=== PATIENT | female | born 1970 | race African-American/Black ===

== ENCOUNTER 2016-11-14 09:35 | Emergency (ER) | payer BC ==
[~2016-11-14] VITALS: Ht 172.7 cm; Wt 126.1 kg
[~2016-11-14 09:35] MED LIST: BENTYL20 MG PO; HYDROCODON-ACE1 EAC7 PO; IMODIUM MS REL1 EACH PO; LISINOPRIL-HCT1 EACH PO; NAPROSYN500 MG PO; ONE DAILY1 EAC3 PO; PREDNISONE20 MG PO; PRINZIDE 10-121 EACH PO; ZOFRAN4 MG PO
[2016-11-14 10:23] LABS: HEMATOCRIT 35.4 % (36.0-46.0); MCH 29.2 PG (29.0-34.0); MCHC 32.2 G/DL (30.0-36.0); MCV 90.8 FL (83-99); MEAN PLAT.VOLUME 9.2 uM^3 (9.5-12.4); PLATELET COUNT 162 K/uL (156-360); RBC DIS.WIDTH-CV 12.4 % (11.8-14.6); RBC DIS.WIDTH-SD 41.1 % (39-53); WHITE BLOOD COUNT 3.6 K/uL (4.1-10.2)
[2016-11-14 10:35] LABS: CHLORIDE 108 mEq/L (99-109); POTASSIUM 4.3 mEq/L (3.7-5.4); SODIUM 142 mEq/L (136-147)
[2016-11-14 10:37] LABS: GLUCOSE 106 mg/dL (70-99)
[2016-11-14 10:38] LABS: ANION GAP 5 MEQ/L (2-14)
[2016-11-14 10:39] LABS: TOTAL BILIRUBIN 0.7 mg/dL (0.0-1.0)
[2016-11-14 10:40] LABS: ALKALINE PHOSPHATASE 65 IU/L (3-129)
[2016-11-14 10:41] LABS: GFR ESTIMATE (CALCULATED) > 59 mL/min/
[2016-11-14 10:42] LABS: UREA NITROGEN (BUN) 14 mg/dL (9-23)
[2016-11-14 10:50] LABS: QUANTITATIVE HCG < 4.0 MIU/ML
[2016-11-14 13:41] LABS: ADD MIUA? NO; BILIRUBIN NEGATIVE; BLOOD NEGATIVE; COLOR YELLOW ((YELLOW)); GLUCOSE (STRIP) NEGATIVE; KETONES 5; LEUKOCYTES NEGATIVE; NITRITE NEGATIVE; PROTEIN (STRIP) NEGATIVE; SPECIFIC GRAVITY 1.015 (1.000-1.030); UCUL ADDED? NO; UROBILINOGEN 0.2 MG/DL (0.2-1.0)
[2016-11-14 13:43] LABS: LIPASE 6 U/L (1.0-51.0)
[2016-11-14] MEDS ORDERED: BENTYL20 MG PO (14:09)
[2016-11-14] MEDS ORDERED: ZOFRAN ODT4 MG PO (14:09)
[2016-11-14 14:25] VITALS: BP 111/72
== END 2016-11-14 14:25 | disposition home or self-care (01) ==
LOC: EME 09:35
DX: R11.2 Nausea with vomiting, unspecified (principal); R19.7 Diarrhea, unspecified; E86.0 Dehydration; Z91.040 Latex allergy status; Z88.5 Allergy status to narcotic agent; Z90.49 Acquired absence of other specified parts of digestive tract
CPT/HCPCS: 74000; 80053; 81003; 83690; 84702; 85027; 87493; 87506; 99281; 99283